=== PATIENT | female | born 1960 | race Caucasian/White ===

== ENCOUNTER → 2016-05-23 | Outpatient (CLI) | payer BC ==
[~2016-05-23] MED LIST: CALC1CHW57 PO; CHOL1000 PO; CLB/200 PO; CLR10 PO; CYCL0.052 OPB; DULO60CA44 PO; FLUT0.15 NAE; IPRA1AER2 INH; MESA800T6 PO; NXM/40 PO; POTA10CA28 PO; PREG100C PO; RIVA1TAB4 PO; SERT-234 PO; SERT50TA PO; SUMA100T16 PO; TOPI200T14 PO; TRAZ100T29 PO; ZOLP12.5 PO
[2016-05-23 18:24] LABS: URINE APPEARANCE CLOUDY (CLEAR); URINE BILIRUBIN NEG (NEG); URINE COLOR DK YELLOW; URINE EPITHELIAL CELL AUTO >30 /lpf (0-5); URINE NITRITE NEG (NEG); URINE SPECIFIC GRAVITY 1.022 (1.000-1.030); UROBILINOGEN NEG (NEG)
[2016-05-23 18:25] LABS: MANUAL MICROSCOPIC REQUIRED? NO; REVIEW REQ? NO
== END | disposition home or self-care (01) ==
LOC: C.LABMFLN 11:14
PROVIDERS: ATTEND Family Medicine
DX: R35.0 Frequency of micturition (principal)

== ENCOUNTER → 2016-07-12 | Day surgery (SDC) | payer BC ==
[2016-07-07 11:14] VITALS: Ht 160 cm; Wt 73.6 kg
[~2016-07-12] VITALS: Ht 160 cm; Wt 73.6 kg
[~2016-07-12] MED LIST changes: +LIDOCAINE HCL 2% 2 ML VIAL (20MG/ML) ONE; +MESA1TAB4 PO; -MESA800T6 PO; +MIDAZOLAM HCL 1 MG/ML 2ML VIAL ONE; +ONDANSETRON INJ 2 MG/ML 2 ML VIAL ONE; +PROPOFOL IV EMULSION 10 MG/ML 20 ML VIAL IV ONE; +SODIUM CHLORIDE 0.9% 500ML 500 ML IV ONE
--- NOTE | 2016-07-12 08:45 | Endo History and Physical ---
History & Physical Date of Service: Jul 12, 2016. Chief Complaint: Crohn's Disease Referring Physician: Dr. Loya History of Present Illness 55 yo CF who presents for colonoscopy secondary to Crohn's Disease. Past Surgical History Hx Cardiac Surgery: No Hx Internal Defibrillator: No Hx Pacemaker: No Hx Abdominal Surgery: Yes ( X2, PARTIAL HYSTER, GALE) Hx of Implantable Prosthesis: No Hx Post-Op Nausea and Vomiting: No Hx Cancer Surgery: No Hx Thoracic Surgery: No Hx Orthopedic: Yes (LT/RT CTR) Hx Urinary Tract Surgery: No Family History None Social History Smoking Status: Former Smoker Hx Substance Use: No Hx Alcohol Use: No Allergies Coded Allergies: Amoxicillin (Verified Allergy, Unknown, RASH, 07/07/16) Cephalexin (Verified Allergy, Unknown, VOMITING AND DIARRHEA, 07/07/16) Clavulanic Acid (Verified Allergy, Unknown, RASH, 07/07/16) Current Medications Reported Home Medications Medications Dose Route/Sig Max Daily Dose Days Date Category Ambien Cr (Zolpidem Tartrate) 12.5 Mg Tabcr 12.5 Mg PO HS PRN 07/07/16 Reported Zoloft (Sertraline HCl) 100 Mg Tab 100 Mg PO HS 07/07/16 Reported Zoloft (Sertraline HCl) 50 Mg Tab 50 Mg PO HS 07/07/16 Reported Xarelto (Rivaroxaban) 20 Mg Tab 20 Mg PO HS 07/07/16 Reported Vitamin D3 (Cholecalciferol) 1,000 Unit Tab 2 Tabs PO QAM 07/07/16 Reported Trazodone (Trazodone HCl) 100 Mg Tab 200 Mg PO HS PRN 07/07/16 Reported Topamax (Topiramate) 200 Mg Tab 200 Mg PO HS 07/07/16 Reported Imitrex (Sumatriptan Succinate) 100 Mg Tab 100 Mg PO UD PRN 07/07/16 Reported Restasis (Cyclosporine (Ophth)) 0.05 % Emu 1 Drop OPB BID 07/07/16 Reported Micro-K Ext Rel (Potassium Chloride) 10 Meq Capcr 10 Meq PO QPM 07/07/16 Reported Lyrica (Pregabalin) 100 Mg Cap 100 Mg PO TID 07/07/16 Reported Claritin (Loratadine) 10 Mg Tab 10 Mg PO DAILY PRN 07/07/16 Reported Flonase Allergy Relief (Fluticasone Propionate (Nasal)) 50 Mcg/Act Spr 2 Sims VIVIANA BID PRN 07/07/16 Reported Nexium (Esomeprazole Magnesium) 40 Mg Capcr 40 Mg PO QAM 07/07/16 Reported Cymbalta (Duloxetine Hcl) 60 Mg Cap 2 Tabs PO HS 07/07/16 Reported Combivent Respimat (Ipratropium-Albuterol) 1 Aer Aer 1 Puffs INH QID PRN 07/07/16 Reported CeleBREX (Celecoxib) 200 Mg Cap 200 Mg PO DAILY PRN 07/07/16 Reported Calcium + D (Calcium W/ Vitamins D & K) 1 Chw Chw 1 Tab PO BID 07/07/16 Reported Asacol Hd (Mesalamine) 800 Mg Tab 3-4 Tabs PO HS 07/07/16 Reported Vital Signs Weight (Kilograms): 73.64 Height (Feet): 5 Height (Inches): 3 Physical Exam General Appearance: WD/WN, no apparent distress Respiratory/Chest: Auscultation: breath sounds normal Cardiovascular: Heart Auscultation: RRR Abdomen: Bowel Sounds: normal Inspection & Palpation: soft, non-distended, no tenderness, guarding & rebound Assessment and Plan Assessment: 55 yo CF who presents for colonoscopy secondary to Crohn's Disease. Plan: Proceed with colonoscopy.
--- NOTE | 2016-07-12 09:56 | Anesthesiology Progress Note ---
Anesthesia Post Op Note Date & Time Jul 12, 2016 at 09:55 Vital Signs Pain Intensity: 0 Vital Signs Past 12 Hours Date Time Temp Pulse Resp B/P Pulse Ox O2 Delivery O2 Flow Rate FiO2 07/12/16 08:48 36.9 91 20 144/99 97 Room Air Notes Mental Status: alert / awake / arousable, participated in evaluation Pt Amnestic to Procedure: Yes Nausea / Vomiting: adequately controlled Pain: adequately controlled Airway Patency, RR, SpO2: stable & adequate BP & HR: stable & adequate Hydration State: stable & adequate Anesthetic Complications: no major complications apparent
--- NOTE | 2016-07-12 09:59 | GI REPORT ---
Procedure Date: 07/12/2016 8:57 AM Procedure: Colonoscopy Indications: Disease activity assessment of Crohn's disease of the colon Medicines: Monitored Anesthesia Care Complications: No immediate complications. Estimated Blood Loss: Estimated blood loss: none. Procedure: Pre-Anesthesia Assessment: - Prior to the procedure, a History and Physical was performed, and patient medications and allergies were reviewed. The patient's tolerance of previous anesthesia was also reviewed. The risks and benefits of the procedure and the sedation options and risks were discussed with the patient. All questions were answered, and informed consent was obtained. Prior Anticoagulants: The patient has taken aspirin, last dose was 2 days prior to procedure. ASA Grade Assessment: III - A patient with severe systemic disease. After reviewing the risks and benefits, the patient was deemed in satisfactory condition to undergo the procedure. After I obtained informed consent, the scope was passed under direct vision. Throughout the procedure, the patient's blood pressure, pulse, and oxygen saturations were monitored continuously. The scope was introduced through the anus and advanced to the terminal ileum. The colonoscopy was performed without difficulty. The patient tolerated the procedure well. The quality of the bowel preparation was good. The terminal ileum, ileocecal valve, appendiceal orifice, and rectum were photographed. Findings: Inflammation characterized by erythema and aphthous ulcerations was found in small patches surrounded by normal mucosa 10 cm apart. This was mild in severity. Biopsies were taken with a cold forceps for histology. A 6 mm polyp was found in the transverse colon. The polyp was sessile. The polyp was removed with a hot snare. Resection and retrieval were complete. Non-bleeding internal hemorrhoids were found during retroflexion. The hemorrhoids were small. Impression: - Inflammation was found in the colon 10 cm apart secondary to Crohn's disease with colonic involvement. Biopsied. - One 6 mm polyp in the transverse colon, removed with a hot snare. Resected and retrieved. - Non-bleeding internal hemorrhoids. Recommendation: - Resume previous diet. - Continue present medications. - Repeat colonoscopy for surveillance based on pathology results. - Return to primary care physician as previously scheduled. Isidoro Eldridge DO 07/12/2016 9:59:20 AM This report has been signed electronically. Note Initiated On: 07/12/2016 8:57 AM I attest to the content of the Intraoperative Record and orders documented therein, exceptions below
--- NOTE | 2016-07-12 10:03 | Discharge Instructions ---
Endoscopy Patient Instructions Date / Procedure(s) Performed Jul 12, 2016. Colonoscopy Allergy Information Coded Allergies: Amoxicillin (Verified Allergy, Unknown, RASH, 07/07/16) Cephalexin (Verified Allergy, Unknown, VOMITING AND DIARRHEA, 07/07/16) Clavulanic Acid (Verified Allergy, Unknown, RASH, 07/07/16) Discharge Date / Findings Jul 12, 2016. Crohn's Colitis s/p biopsies Medication Instructions Stopped Medication(s): took Xarelto yesterday OK to resume all medications today as prescribed Reported Home Medications Medications Dose Route/Sig Max Daily Dose Days Date Category Ambien Cr (Zolpidem Tartrate) 12.5 Mg Tabcr 12.5 Mg PO HS PRN 07/07/16 Reported Zoloft (Sertraline HCl) 100 Mg Tab 100 Mg PO HS 07/07/16 Reported Zoloft (Sertraline HCl) 50 Mg Tab 50 Mg PO HS 07/07/16 Reported Xarelto (Rivaroxaban) 20 Mg Tab 20 Mg PO HS 07/07/16 Reported Vitamin D3 (Cholecalciferol) 1,000 Unit Tab 2 Tabs PO QAM 07/07/16 Reported Trazodone (Trazodone HCl) 100 Mg Tab 200 Mg PO HS PRN 07/07/16 Reported Topamax (Topiramate) 200 Mg Tab 200 Mg PO HS 07/07/16 Reported Imitrex (Sumatriptan Succinate) 100 Mg Tab 100 Mg PO UD PRN 07/07/16 Reported Restasis (Cyclosporine (Ophth)) 0.05 % Emu 1 Drop OPB BID 07/07/16 Reported Micro-K Ext Rel (Potassium Chloride) 10 Meq Capcr 10 Meq PO QPM 07/07/16 Reported Lyrica (Pregabalin) 100 Mg Cap 100 Mg PO TID 07/07/16 Reported Claritin (Loratadine) 10 Mg Tab 10 Mg PO DAILY PRN 07/07/16 Reported Flonase Allergy Relief (Fluticasone Propionate (Nasal)) 50 Mcg/Act Spr 2 [place] VIVIANA BID PRN 07/07/16 Reported Nexium (Esomeprazole Magnesium) 40 Mg Capcr 40 Mg PO QAM 07/07/16 Reported Cymbalta (Duloxetine Hcl) 60 Mg Cap 2 Tabs PO HS 07/07/16 Reported Combivent Respimat (Ipratropium-Albuterol) 1 Aer Aer 1 Puffs INH QID PRN 07/07/16 Reported CeleBREX (Celecoxib) 200 Mg Cap 200 Mg PO DAILY PRN 07/07/16 Reported Calcium + D (Calcium W/ Vitamins D & K) 1 Chw Chw 1 Tab PO BID 07/07/16 Reported Asacol Hd (Mesalamine) 800 Mg Tab 3-4 Tabs PO HS 07/07/16 Reported Provider Instructions Activity Restrictions - No exercising or heavy lifting for 24 hours. - Do not drink alcohol the day of the procedure. - Do not drive a car or operate machinery until the day after the procedure. - Do not make any important decisions or sign important papers in 24 hours after the procedure. Following Day: - Return to full activity which may include returning to work/school. Diet Start your diet with liquids and light foods (jello, soup, juice, toast). Then eat your usual diet if not nauseated. Treatment For Common After Affects For mild abdominal pain, bloating, or excessive gas: - Rest - Eat lightly - Lie on right side Follow-Up Information Follow-up with Dr. Felice Loya as scheduled Anesthesia Information What You Should Know You have had a procedure that required some medicine to reduce anxiety and discomfort. This treatment is called moderate sedation. After receiving the treatment, you may be sleepy, but you will be able to breathe on your own. The effects of the treatment may last for several hours. Follow these instructions along with Activity/Diet recommendations noted above: * Do NOT do anything where dizziness or clumsiness would be dangerous. * Rest quietly at home today, then you can be up and about tomorrow. * Have a responsible person stay with you the rest of today. * You may have had an I.V. today. If so, you may take the dressing off later today. Recommendations Call your doctor if: * Trouble breathing * Continuous vomiting for more than 24 hours * Temperature above 101 degrees * Severe abdominal pain or bloating * Pain not relieved by pain medicine ordered * There is increased drainage or redness from any incision * A large amount of rectal bleeding greater than 2-3 tablespoons. (If you had a polyp/s removed or have hemorrhoids, a small amount of blood - from the rectum is to be expected.) * You have any unanswered questions or concerns. IN THE EVENT OF A SERIOUS EMERGENCY, GO TO THE NEAREST EMERGENCY ROOM Your discharge instructions were prepared by provider Isidoro Eldridge. Patient Instructions Signature Page Louann Syed Patient (or Guardian) Signature/Date: I have read and understand the instructions given to me by my caregivers. Caregiver/RN/Doctor Signature/Date: The above-named patient and/or guardian has received patient instructions on this date. + Original Patient Signature Page (only) stays with chart. Please make copy for patient.
[2016-07-12 10:25] VITALS: BP 144/91; PULSE 79; O2SAT 98
== END | disposition home or self-care (01) ==
LOC: C.GI 08:14
PROVIDERS: ATTEND Internal Medicine
DX: K50.10 Crohn's disease of large intestine without complications (principal); K63.5 Polyp of colon; K64.8 Other hemorrhoids; Z87.891 Personal history of nicotine dependence; Z98.890 Other specified postprocedural states; Z90.710 Acquired absence of both cervix and uterus; Z88.1 Allergy status to other antibiotic agents; Z88.8 Allergy status to other drugs, medicaments and biological substances

== ENCOUNTER → 2016-12-16 | Outpatient (CLI) | payer BC ==
[~2016-12-16] MED LIST changes: -LIDOCAINE HCL 2% 2 ML VIAL (20MG/ML) ONE; -MESA1TAB4 PO; +MESA800T6 PO; -MIDAZOLAM HCL 1 MG/ML 2ML VIAL ONE; -ONDANSETRON INJ 2 MG/ML 2 ML VIAL ONE; -PROPOFOL IV EMULSION 10 MG/ML 20 ML VIAL IV ONE; -SODIUM CHLORIDE 0.9% 500ML 500 ML IV ONE
[2016-12-16 12:58] LABS: BASO % 0.2 %; BASO ABS # 0.01 K/uL (0-0.2); COMPLETE YES; EOS % 2.5 %; HEMATOCRIT 43.6 % (37-47); IG% 0.5 %; MEAN CELL VOLUME 88.6 fL (80-100); MEAN CORPUSCULAR HEMOGLOBIN 29.3 pg (25-34); MEAN PLATELET VOLUME 9.7 fL (7.4-10.4); MONO % 7.9 %; NEUT % 51.9 %; PLATELET COUNT 273 K/uL (130-400); RED BLOOD COUNT 4.92 M/uL (4.2-5.4); WHITE BLOOD COUNT 5.68 K/uL (4.8-10.8)
[2016-12-16 14:22] LABS: ALT/SGPT 25 U/L (12-78); AST/SGOT 16 U/L (15-37); BLOOD UREA NITROGEN 9 mg/dl (7-18); CALCIUM 9.2 mg/dl (8.5-10.1); CARBON DIOXIDE 24 mmol/L (21-32); CHLORIDE 113 mmol/L (98-107); CHOLESTEROL 239 mg/dl (0-200); CREATININE 0.83 mg/dl (0.60-1.20); GLUCOSE 85 mg/dl (70-99); POTASSIUM 3.7 mmol/L (3.5-5.1); SODIUM 143 mmol/L (136-145); TRIGLYCERIDES 229 mg/dl (0-150); VERY LOW DENSITY LIPOPROT CALC 46 mg/dl
[2016-12-16 14:31] LABS: ALB/GLOB RATIO 1.1 (0.9-2); ALKALINE PHOSPHATASE 96 U/L (45-117); C-REACTIVE PROTEIN 0.37 mg/dl (0-0.29); HDL CHOLESTEROL 60 mg/dl; LDL CHOLESTEROL CALCULATED 133 mg/dl; TOTAL IRON BINDING CAPACITY 356 mcg/dl (250-450)
== END | disposition home or self-care (01) ==
LOC: C.LABMFLN 11:11
PROVIDERS: ATTEND Internal Medicine
DX: K50.10 Crohn's disease of large intestine without complications (principal); E78.00 Pure hypercholesterolemia, unspecified; D68.51 Activated protein C resistance; E55.9 Vitamin D deficiency, unspecified; J45.909 Unspecified asthma, uncomplicated; K22.70 Barrett's esophagus without dysplasia

== ENCOUNTER → 2017-11-24 | Outpatient (CLI) | payer BC ==
[~2017-11-24] MED LIST changes: +ALBU2SYP9 INH; +APIX1TAB3 PO; -CALC1CHW57 PO; -CHOL1000 PO; -DULO60CA44 PO; -FLUT0.15 NAE; +FLUT50SP45 NAE; +LOPE-5 PO; +MESA800T5 PO; -MESA800T6 PO; +MOME200A INH; -RIVA1TAB4 PO; -SERT50TA PO
--- NOTE | 2017-11-24 09:58 | DIAGNOSTIC IMAGING REPORT ---
ADDENDUM ADDENDUM: The 08/29/[address] from [facility] subsequently presented for interpretation. Mediastinal lymphadenopathy has not significant changed and remains indeterminant. 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 Continued attention at follow-up is recommended. Electronically signed by: Felice Portillo M.D. 11/24/2017 12:41 PM Dictated Date/Time: 11/24/2017 12:[address] SCAN OF THE CHEST WITHOUT IV CONTRAST CLINICAL HISTORY: Follow-up pulmonary nodule. Abnormal chest CT. COMPARISON STUDY: No priors. TECHNIQUE: CT scan of the thorax was performed from the thoracic inlet to the upper abdomen. Images are reviewed in the axial, sagittal, and coronal planes. IV contrast was not administered for this examination as per the referring clinician. A dose lowering technique was utilized adhering to the principles of ALARA. CT DOSE: 234.48 mGy.cm FINDINGS: Thyroid: Imaged portions of the thyroid gland are normal in size and attenuation. Thoracic aorta: The thoracic aorta is normal in caliber and demonstrates standard 3-vessel arch anatomy. Heart: The heart is normal in size and without pericardial effusion. Lungs and pleural spaces: There is no airspace consolidation or pleural effusion. The trachea and central airways are clear. There is a 9 mm irregular focus of pleural-based nodularity in the right upper lobe seen on image #83. No additional pulmonary nodule is identified. Mediastinum: There is mediastinal lymphadenopathy. Prevascular nodes measure up to 12 mm short axis. A subcarinal node measures 1.9 cm in short axis. Wandy: Not well assessed without IV contrast. Axillae: There is no axillary lymphadenopathy. Upper abdomen: There is a tiny hiatal hernia. Cholecystectomy clips are noted. The spleen is normal in size. Skeletal structures: The skeletal structures are osteopenic. Hemangiomas are noted in the bodies of T4 and T6. No lytic or blastic bony lesions are seen. IMPRESSION: 1. There is a pathologically indeterminant 9 mm irregular focus of pleural-based nodularity identified in the right upper lobe. Correlation with any prior examinations is recommended as is follow-up as per the Fleischner criteria. See below. 2. No additional pulmonary lesion is identified. 3. There is no airspace consolidation or pleural effusion. 4. Nonspecific mediastinal lymphadenopathy is identified. Please refer to below summary of Fleischner criteria recommendations for follow-up of incidental CT nodules (Jose Sarabia, Guidelines for management of small pulmonary nodules detected on CT scans: A statement from the Fleischner Society, Radiology 237: [phone].) SOLID NODULES Solitary nodule size: <6 mm * low risk patients: no follow-up needed * high risk patients: optional CT at 12 months Solitary nodule size: 6-8 mm * low risk patients: follow-up at 6-12 months, then consider further follow-up at 18-24 months * high risk patients: initial follow-up CT at 6-12 months and then at 18-24 months if no change Solitary nodule size: >8 mm * either low or high risk patients - consider follow-up CT at 3 months, and/or CT-PET, and/or biopsy Multiple nodules size: <6 mm * low risk patients: no routine follow-up * high risk patients: optional CT at 12 months Multiple nodules size: 6-8 mm * low risk patients: follow-up at 3-6 months, then consider further follow-up at 18-24 months * high risk patients: follow-up at 3-6 months, then at 18-24 months if no change Multiple nodules size: >8 mm * low risk patients: follow-up at 3-6 months, then consider further follow-up at 18-24 months * high risk patients: follow-up at 3-6 months, then at 18-24 months if no change Note: newly detected indeterminate nodule in persons 35 years of age or older. * low risk patients: minimal or absent history of smoking and/or other known risk factors * high risk patients: history of smoking or of other known risk factors (e.g. first degree relative with lung cancer, or exposure to asbestos, radon, uranium) * if a nodule up to 8 mm is partly solid or is ground glass further follow-up is required after 24 months to exclude possible slow growing adenocarcinoma (BOB) SUBSOLID NODULES Solitary pure ground-glass nodule * nodule size <6 mm - no CT follow-up required * nodule size >=6 mm - follow-up CT at 6-12 months, then every 2 years until 5 years Solitary part-solid nodule * nodule size <6 mm - no CT follow-up required * nodule size >=6 mm - follow-up CT at 3-6 months. If unchanged, and solid component remains <6 mm, then annual follow-up for 5 years Multiple subsolid nodules * nodule size <6 mm - follow-up CT at 3-6 months, consider further follow-up at 2 and 4 years if stable * nodule size >=6 mm - follow-up CT at 3-6 months, subsequent management based on the most suspicious nodule(s) Electronically signed by: Felice Portillo M.D. 11/24/2017 9:57 AM Dictated Date/Time: 11/24/2017 9:45 AM
== END | disposition home or self-care (01) ==
LOC: C.CTS 09:26
PROVIDERS: ATTEND Family Medicine
DX: R93.8 Abnormal findings on diagnostic imaging of other specified body structures (principal); R91.1 Solitary pulmonary nodule; R59.0 Localized enlarged lymph nodes